=== PATIENT | male | born 1970 | race Hispanic/Latino ===

== ENCOUNTER 2020-06-04 22:16 | Emergency (ER) | payer SELFPAY ==
[~2020-06-04] VITALS: Ht 180.3 cm; Wt 140.6 kg
--- NOTE | 2020-06-05 | Emergency Department Note ---
History of Present Illnes History of Present Illness Chief Complaint: Extremity Trauma/Pain History of Present Illness This is a 49 year old male hief Complaint Comment PT C/O PAIN TO BACK OF LEFT KNEE THAT RADIATES TO JUST BELOW PATELLA AREA AND UP TO M[place]IGH, STATES PAIN STARTED GRADUALLY AT WORK AND GOT WORSE THROUGHOUT DAY WHEN PATIENT WAS DRIVING HOME FROM THE PAIN WAS AT ITS WORSE, TOOK AN ASPRIN AND ELEVATED LEG, HAD SOME IMPROVEMENT BUT CALLED A FRIEND TOLD TO GO GET CHECKED FOR POSS BLOOD CLOT, PT DENIES ANY SOB OR CP . Historian: Patient Arrival Mode: Car Location: left leg Quality: dull Radiation: Denies non-radiation, Denies back, Denies neck, Denies extremity, Denies abdomen, Denies periumbilical, Denies flank, Denies proximal, Denies distal, Denies other Severity: moderate Onset quality: gradual Duration (how long): day(s) (2) Timing of current episode: intermittent Progression: waxing and waning Chronicity: new Context: Denies recent illness, Denies recent surgery, Denies recent immobilization, Denies recent travel, Denies trauma/injury, Denies new medications, Denies hx of DVT/PE, Denies non-compliance w/ medications, Denies other Relieving factors: rest Exacerbating factors: movement Associated symptoms: Denies denies other symptoms, Denies confusion, Denies chest pain, Denies cough, Denies diaphoresis, Denies fever/chills, Denies headaches, Denies loss of appetite, Denies malaise, Denies nausea/vomiting, Denies rash, Denies seizure, Denies shortness of breath, Denies syncope, Denies weakness, Denies other Treatments prior to arrival: none Past Medical/Family History Physician Review I have reviewed the patient's past medical and family history. Any updates have been documented here. Past Medical History Recent Fever: No Clinical Suspicion of Infectio: No New/Unexplained Change in Ment: No Past Medical History: Hypertension Other Medical History: PT DOES NOT AND HAS NEVER GOTTEN TREATMENT FOR HTN Past Surgical History: None Social History Smoking Cessation: Current some day smoker Counseling Performed: No Alcohol Use: None Any Illegal Drug Use: Yes (MARIJUANA) Other Any Pre-Existing Lines (PICC,: No Review of Systems Review of Systems Constitutional: Reports no symptoms EENTM: Reports no symptoms Cardiovascular: Reports no symptoms Respiratory: Reports no symptoms Gastrointestinal: Reports no symptoms Genitourinary: Reports no symptoms Musculoskeletal: Reports as per HPI Integumentary: Reports no symptoms Neurological: Reports no symptoms Psychological: Reports no symptoms Endocrine: Reports no symptoms Hematological/Lymphatic: Reports no symptoms Physical Exam Related Data Allergies: Coded Allergies: Penicillins (Verified Allergy, Unknown, 06/04/20) Triage Vital Signs Vital Signs Date Time Temp Pulse Resp B/P (MAP) Pulse Ox O2 Delivery O2 Flow Rate FiO2 06/04/20 22:30 98.2 62 18 155/87 98 Room Air Vital signs reviewed: Yes Physical Exam CONSTITUTIONAL Constitutional: Present well-developed, Present well-nourished HENT HENT: Present normocephalic, Present atraumatic, Present oropharynx clear/moist, Present nose normal HENT L/R: Present left ext ear normal, Present right ext ear normal EYES Eyes: Reports PERRL, Reports conjunctivae normal NECK Neck: Present ROM normal PULMONARY Pulmonary: Present effort normal, Present breath sounds normal CARDIOVASCULAR Cardiovascular: Present regular rhythm, Present heart sounds normal, Present capillary refill normal, Present normal rate GASTROINTESTINAL Abdominal: Present soft, Present nontender, Present bowel sounds normal GENITOURINARY Genitourinary: Present exam deferred SKIN Skin: Present warm, Present dry MUSCULOSKELETAL Musculoskeletal: Present ROM normal, Present tenderness (left thigh) NEUROLOGICAL Neurological: Present alert, Present oriented x 3, Present no gross motor or sensory deficits PSYCHOLOGICAL Psychological: Present mood/affect normal, Present judgement normal Results Imaging Imaging results reviewed: Yes Assessment & Plan Medical Decision Making MDM DVT MUSCULSKELETAL PAIN Reassessment Reassessment time: 23:59 Reassessment BETTER Assessment & Plan Final Impression: (1) Leg pain, left (2) Musculoskeletal pain Last Vital Signs Date Time Temp Pulse Resp B/P (MAP) Pulse Ox O2 Delivery O2 Flow Rate FiO2 06/04/20 22:30 98.2 62 18 155/87 98 Room Air RAY HENLEY MD Jun 05, 2020 00:00
[2020-06-05] MEDS ORDERED: CYCLOBENZAPRINE5 MG PEG (00:02)
[2020-06-05] MEDS ORDERED: NAPROSYN500 MG PO (00:02)
--- NOTE | 2020-06-05 00:22 | Diagnostic Imaging Report ---
EXAM: Left Lower Extremity Venous Duplex Ultrasound INDICATION: pain COMPARISON: None TECHNIQUE: Cage scale, color Doppler and spectral waveform analysis of the left lower extremity deep venous system was performed. FINDINGS: Common Femoral: Fully compressible with normal spontaneous waveforms. Proximal Greater Saphenous: Fully compressible. Femoral: Fully compressible with normal spontaneous waveforms. Normal response to augmentation. Proximal Deep Femoral: Normal spontaneous waveforms. Popliteal: Fully compressible with normal spontaneous waveforms. No findings of thrombus identified in the infrapopliteal veins. IMPRESSION: No evidence of deep venous thrombosis above the left calf. Signed by: Adonis Freitas DO on 06/05/2020 12:19 AM
== END 2020-06-05 00:20 | disposition home or self-care (01) ==
LOC: FSED 23:28
DX: M25.562 Pain in left knee (principal); F17.210 Nicotine dependence, cigarettes, uncomplicated
CPT/HCPCS: 93971; 99283